=== PATIENT | female | born 1985 | race Caucasian/White ===

== ENCOUNTER → 2023-11-23 | Outpatient (CLI) | payer BC | END | disposition home or self-care (01) | LOC: LAB 13:37 | PROVIDERS: ATTEND Obstetrics & Gynecology | DX: N91.2 Amenorrhea, unspecified (principal) ==

== ENCOUNTER → 2023-12-12 | Outpatient (CLI) | payer BC ==
[2023-12-12 12:57] LABS: BASO % 0.5 % (0.0-1.0); EOS % 0.7 % (1.0-4.0); HEMATOCRIT 38.7 % (37.0-47.0); LYMPH % 34.7 % (27.0-41.0); MEAN CELL VOLUME 91.1 fl (81.0-99.0); MEAN CORPUSCULAR HGB 29.2 pg (27.0-31.0); MONO # 0.5 10*3/uL (0.1-1.0); MONO % 7.9 % (3.0-9.0); NEUT # 3.3 10*3/uL (2.3-7.9); PLATELET COUNT AUTOMATED 200 10*3/uL (130-400); RED BLOOD COUNT 4.25 10*6/uL (4.10-5.10); RED CELL DISTRI WIDTH 12.3 % (0-14.5); WHITE BLOOD COUNT 5.8 10*3/uL (4.8-10.8)
[2023-12-12 13:30] LABS: VITAMIN D, 25-HYDROXY 70.5 ng/mL (30-100)
[2023-12-12 13:42] LABS: B-hCG (QUALITATIVE) NEGATIVE (NEGATIVE)
== END | disposition home or self-care (01) ==
LOC: LAB 11:33
PROVIDERS: ATTEND Obstetrics & Gynecology
DX: N91.2 Amenorrhea, unspecified (principal)

== ENCOUNTER → 2023-12-19 | Outpatient (CLI) | payer BC ==
[2023-12-19 09:48] LABS: BASO % 0.6 % (0.0-1.0); EOS # 0.1 10*3/uL (0.0-0.4); EOS % 1.1 % (1.0-4.0); HEMATOCRIT 36.9 % (37.0-47.0); LYMPH # 1.7 10*3/uL (1.3-4.4); LYMPH % 35.3 % (27.0-41.0); MEAN CELL VOLUME 90.9 fl (81.0-99.0); MEAN CORPUSCULAR HGB 30.3 pg (27.0-31.0); MEAN CORPUSCULAR HGB CONC 33.3 g/dl (33.0-37.0); MEAN PLATELET VOLUME 9.9 fl (9.6-12.3); MONO # 0.4 10*3/uL (0.1-1.0); MONO % 8.1 % (3.0-9.0); NEUT # 2.6 10*3/uL (2.3-7.9); NEUT % 54.7 % (47.0-73.0); PLATELET COUNT AUTOMATED 179 10*3/uL (130-400); RED BLOOD COUNT 4.06 10*6/uL (4.10-5.10); RED CELL DISTRI WIDTH 12.3 % (0-14.5); WHITE BLOOD COUNT 4.7 10*3/uL (4.8-10.8)
[2023-12-19 10:18] LABS: B-hCG (QUALITATIVE) NEGATIVE (NEGATIVE)
== END | disposition home or self-care (01) ==
LOC: LAB 09:26
PROVIDERS: ATTEND Obstetrics & Gynecology
DX: N91.2 Amenorrhea, unspecified (principal)

== ENCOUNTER → 2024-01-04 | Outpatient (CLI) | payer BC | END | disposition home or self-care (01) | LOC: US 04:01 | PROVIDERS: ATTEND Internal Medicine | DX: E05.90 Thyrotoxicosis, unspecified without thyrotoxic crisis or storm (principal) ==

== ENCOUNTER → 2024-02-19 | Outpatient (CLI) | payer BC ==
[2024-02-19 10:34] LABS: FREE T4 1.17 ng/dl (0.89-1.76)
== END | disposition home or self-care (01) ==
LOC: LAB 09:08
PROVIDERS: ATTEND Internal Medicine Endocrinology, Diabetes & Metabolism
DX: E05.00 Thyrotoxicosis with diffuse goiter without thyrotoxic crisis or storm (principal)

== ENCOUNTER → 2024-04-22 | Outpatient (CLI) | payer BC ==
[2024-04-22 14:18] LABS: BASO # 0.1 10*3/uL (0.0-0.1); BASO % 0.9 % (0.0-1.0); EOS # 0.1 10*3/uL (0.0-0.4); EOS % 1.2 % (1.0-4.0); HEMATOCRIT 39.9 % (37.0-47.0); MEAN CELL VOLUME 91.9 fl (81.0-99.0); MEAN CORPUSCULAR HGB 29.7 pg (27.0-31.0); MEAN CORPUSCULAR HGB CONC 32.3 g/dl (33.0-37.0); MEAN PLATELET VOLUME 10.1 fl (9.6-12.3); MONO # 0.4 10*3/uL (0.1-1.0); MONO % 6.6 % (3.0-9.0); NEUT # 2.9 10*3/uL (2.3-7.9); PLATELET COUNT AUTOMATED 192 10*3/uL (130-400); RED BLOOD COUNT 4.34 10*6/uL (4.10-5.10); RED CELL DISTRI WIDTH 12.8 % (0-14.5); WHITE BLOOD COUNT 5.6 10*3/uL (4.8-10.8)
[2024-04-22 14:54] LABS: B-hCG (QUALITATIVE) NEGATIVE (NEGATIVE)
== END | disposition home or self-care (01) ==
LOC: LAB 13:54
PROVIDERS: ATTEND Obstetrics & Gynecology
DX: E05.90 Thyrotoxicosis, unspecified without thyrotoxic crisis or storm (principal); N91.2 Amenorrhea, unspecified

== ENCOUNTER → 2024-05-31 | Outpatient (CLI) | payer BC ==
[2024-05-31 13:22] LABS: FREE T4 1.18 ng/dl (0.89-1.76)
== END | disposition home or self-care (01) ==
LOC: LAB 10:17
PROVIDERS: Student in an Organized Health Care Education/Training Program; ATTEND Internal Medicine Endocrinology, Diabetes & Metabolism
DX: E05.00 Thyrotoxicosis with diffuse goiter without thyrotoxic crisis or storm (principal)

== ENCOUNTER → 2024-09-10 | Outpatient (CLI) | payer BC ==
[2024-09-10 12:05] LABS: FREE T4 1.11 ng/dl (0.89-1.76)
== END | disposition home or self-care (01) ==
LOC: LAB 11:01
PROVIDERS: Student in an Organized Health Care Education/Training Program; ATTEND Internal Medicine Endocrinology, Diabetes & Metabolism
DX: E05.00 Thyrotoxicosis with diffuse goiter without thyrotoxic crisis or storm (principal)

== ENCOUNTER → 2024-12-19 | Outpatient (CLI) | payer BC ==
[2024-12-19 10:11] LABS: FREE T4 1.15 ng/dl (0.89-1.76)
== END | disposition home or self-care (01) ==
LOC: LAB 09:05
PROVIDERS: ATTEND Internal Medicine Endocrinology, Diabetes & Metabolism
DX: E05.00 Thyrotoxicosis with diffuse goiter without thyrotoxic crisis or storm (principal)